=== PATIENT | female | born 1970 | race Caucasian/White ===

== ENCOUNTER 2020-01-29 08:58 | Outpatient (CLI) | payer SELFPAY ==
[2020-01-29] VITALS (12 sets, daily range): BP systolic 104–154; BP diastolic 67–103; PULSE 64–88
[~2020-01-29] VITALS: Ht 154.9 cm; Wt 49.6 kg
[~2020-01-29 08:58] MED LIST: ZESTRIL 10MG10 MG PO
--- NOTE | 2020-01-29 09:45 | NUR ---
PT TAKEN AMBULATORY TO CT. PT PUT INOT POSITION AND IMAGES TAKEN. PT GIVEN 1 MG VERSED AND 25 MCG FENTANYL
--- NOTE | 2020-01-29 13:10 | NUR ---
PT WAS TAKEN TO [facility] IN WHEELCHAIR. PT WAS DELIVERED TO [facility] WITH FAMILY
== END 2020-01-29 18:00 | disposition home or self-care (01) ==
LOC: COL.RAD 08:58
DX: C34.12 Malignant neoplasm of upper lobe, left bronchus or lung (principal)

== ENCOUNTER 2020-02-03 12:13 | Day surgery (SDC) | payer SELFPAY ==
[~2020-02-03] VITALS: Ht 154.9 cm; Wt 49.0 kg
[2020-02-03 12:56] VITALS: BP 113/90; PULSE 77; TEMP 97.3
[2020-02-03 13:40] VITALS: BP 110/69; PULSE 68
--- NOTE | 2020-02-03 13:40 | NUR ---
Patient returns to [facility] per cart and is awake and alert. Transfers from cart to recliner with one person assist. Room air sats 100%. Temp 97.0. IV fluids infusing and site is free of redness. Call light in reach. Denies abdominal pain or nausea. Given water to drink.
[2020-02-03 13:55] VITALS: BP 115/64; PULSE 67
--- NOTE | 2020-02-03 13:55 | NUR ---
Eating muffin. Room air sats 98%. Continues to deny nausea.
[2020-02-03 14:10] VITALS: BP 109/81; PULSE 69
--- NOTE | 2020-02-03 14:10 | NUR ---
Tolerated muffin and water and denies nausea. IV discontinued and site is free of redness. Given dismissal instructions. Voices understanding of home cares and follow up as needed. Patient is able to dress self.
--- NOTE | 2020-02-03 14:13 | NUR ---
Patient dismissed to home driven by son and taken to the front door per wheelchair with dismissal instructions in hand and assisted into car by this RN.
== END 2020-02-03 14:13 | disposition home or self-care (01) ==
LOC: SDCO 12:13
DX: R93.5 Abnormal findings on diagnostic imaging of other abdominal regions, including retroperitoneum (principal); Z86.010 Personal history of colon polyps; K64.0 First degree hemorrhoids; K57.30 Diverticulosis of large intestine without perforation or abscess without bleeding; C34.12 Malignant neoplasm of upper lobe, left bronchus or lung; I10 Essential (primary) hypertension; F17.210 Nicotine dependence, cigarettes, uncomplicated; Z79.899 Other long term (current) drug therapy
CPT/HCPCS: J2704; J7030

== ENCOUNTER → 2020-05-24 | Outpatient (CLI) | payer SELFPAY | LOC: COL.RAD 12:32 | DX: C34.12 Malignant neoplasm of upper lobe, left bronchus or lung (principal); J43.9 Emphysema, unspecified | CPT/HCPCS: Q9967 ==

== ENCOUNTER → 2020-08-03 | Outpatient (CLI) | payer SELFPAY | LOC: COL.RAD 12:20 | DX: C34.12 Malignant neoplasm of upper lobe, left bronchus or lung (principal); J43.9 Emphysema, unspecified | CPT/HCPCS: Q9967 ==

== ENCOUNTER → 2020-12-23 | Outpatient (CLI) | payer SELFPAY | LOC: COL.RAD | DX: C34.12 Malignant neoplasm of upper lobe, left bronchus or lung (principal); R91.8 Other nonspecific abnormal finding of lung field | CPT/HCPCS: Q9967 ==

== ENCOUNTER → 2021-05-11 | Outpatient (CLI) | payer SELFPAY | LOC: COL.RAD 11:58 | DX: R91.8 Other nonspecific abnormal finding of lung field (principal); C34.12 Malignant neoplasm of upper lobe, left bronchus or lung | CPT/HCPCS: Q9967 ==

== ENCOUNTER → 2024-01-03 | Outpatient (CLI) | payer BC ==
[~2024-01-03] MED LIST changes: +Barium Sulfate 2% Oral Susp 450 ML X 2 BOTTLES PO SCH; +Iohexol 300 - 100 ML VIAL IV ONE; +NS 100 ML IV SCH
== END ==
LOC: COL.RAD 05:05
DX: C34.12 Malignant neoplasm of upper lobe, left bronchus or lung (principal); R59.9 Enlarged lymph nodes, unspecified
CPT/HCPCS: Q9967